=== PATIENT | male | born 1985 | race Caucasian/White ===

== ENCOUNTER 2017-05-31 23:36 | Emergency (ER) | payer BC ==
[~2017-05-31] VITALS: Ht 167.6 cm; Wt 77.1 kg
[2017-05-31] MEDS ORDERED: FAMCYCLOVIR 50500 M1 PO (23:54)
[2017-05-31 23:58] LABS: ABSOLUTE BASOPHILS 0.1 thou/uL (0.0-0.2); ABSOLUTE EOSINOPHILS 0.1 thou/uL (0.0-0.7); ABSOLUTE LYMPHOCYTES 2.7 thou/uL (0.8-5.3); ABSOLUTE MONOCYTES 0.5 thou/uL (0.0-1.2); ABSOLUTE NEUTROPHILS 3.4 thou/uL (1.6-8.1); HEMATOCRIT 46.7 % (42.0-52.0); HEMOGLOBIN 15.9 gm/dL (14.0-18.0); LYMPHOCYTES 39.6 %; MCH 30.6 pg (26.0-34.0); MONOCYTES 7.7 %; MPV 7.5 fl. (7.2-11.1); NUCLEATED RBCS 0 /100WBC; PLATELET COUNT* 346 thou/uL (150-400); POLYS 49.7 %; RBC 5.19 mil/uL (4.50-6.00); RDW-CV 12.9 % (10.5-14.5); WBC 6.9 thou/uL (4.0-11.0)
[2017-06-01 00:05] LABS: ANION GAP 10 mmol/L (7-16); BUN 8 mg/dL (7-18); CALCIUM 9.3 mg/dL (8.5-10.1); CHLORIDE 104 mmol/L (98-107); CO2 28 mmol/L (21-32); GLUCOSE 157 mg/dL (70-99); POTASSIUM 3.6 mmol/L (3.5-5.1); SODIUM 142 mmol/L (136-145)
[2017-06-01 00:14] LABS: APTT 25.2 Seconds (25.0-31.3); INR 1.1; PROTIME 10.4 Seconds (9.20-11.50)
[2017-06-01 00:28] LABS: ALBUMIN 4.3 g/dL (3.4-5.0); ALKALINE PHOSPHATASE 51 U/L (46-116); CK-MB MASS 1.1 ng/mL (<0.5-3.6); LIPASE 93 U/L (73-393); MAGNESIUM 1.9 mg/dL (1.8-2.4); NT-PRO BRAIN NAT PEPTIDE 28 pg/mL (<300); SGOT 17 U/L (15-37); SGPT 31 U/L (30-65); TOTAL BILIRUBIN 0.3 mg/dL (<0.1-1.0); TOTAL PROTEIN 8.1 g/dL (6.4-8.2); TROPONIN-I LEVEL <0.06 ng/mL (<0.06)
[2017-06-01 00:39] VITALS: BP 132/92
--- NOTE | 2017-06-01 16:17 | EKG ---
[place] [address] ELECTROCARDIOGRAM REPORT Name: SADIQ OLMEDO Room: [facility]#: [id number] Admission: 05/31/17 Attend Phys: Discharge: 06/01/17 Date of : 81 Report #: [id number] THIS REPORT FOR: //name// [facility] ED Test Date: 2017-05-31 Test Time: 23:42:06 Pat Name: SADIQ OLMEDO Department: Room: Gender: M [employer]: : 1985 Requested By: Werner Mendez Order Number: [id number] MD: Sadiq Bailey Measurements Intervals [place] Rate: 137 P: 89 AR: 131 QRS: 67 QRSD: 96 T: -34 QT: 296 QTc: 447 Interpretive Statements Sinus tachycardia Borderline repolarization abnormality No previous ECG available for comparison Electronically Signed On 06-01-2017 16:16:56 CDT by Sadiq Bailey [email or web address] <ELECTRONICALLY SIGNED> By: Sadiq Bailey MD, [facility] 06/01/17 1616 [id number] Sadiq Bailey MD, FACC /EPI
== END 2017-06-01 00:41 | disposition home or self-care (01) ==
LOC: M.ERS 23:36
PROVIDERS: Family Medicine
DX: F41.0 Panic disorder [episodic paroxysmal anxiety] (principal); Z91.041 Radiographic dye allergy status

== ENCOUNTER 2017-12-16 15:43 | Emergency (ER) | payer BC ==
[~2017-12-16] VITALS: Ht 167.6 cm; Wt 82.6 kg
[~2017-12-16 15:43] MED LIST: FAMCYCLOVIR 50500 M1 PO
[2017-12-16] MEDS ORDERED: LEXAPRO 10 MG T10 M1 PO (15:54)
[2017-12-16] MEDS ORDERED: TRAZODONE HCL50 MG PO (15:55)
[2017-12-16] MEDS ORDERED: FAMCYCLOVIR 50500 M1 PO (15:55)
[2017-12-16 16:21] LABS: ABSOLUTE BASOPHILS 0.1 thou/uL (0.0-0.2); ABSOLUTE EOSINOPHILS 0.1 thou/uL (0.0-0.7); ABSOLUTE LYMPHOCYTES 1.9 thou/uL (0.8-5.3); ABSOLUTE MONOCYTES 0.5 thou/uL (0.0-1.2); ABSOLUTE NEUTROPHILS 3.7 thou/uL (1.6-8.1); BASOPHILS 1.3 %; EOSINOPHILS 1.5 %; HEMATOCRIT 47.5 % (42.0-52.0); HEMOGLOBIN 16.1 gm/dL (14.0-18.0); LYMPHOCYTES 30.2 %; MCH 30.3 pg (26.0-34.0); MCV 89.1 fL (80.0-100.0); NUCLEATED RBCS 0 /100WBC; PLATELET COUNT* 359 thou/uL (150-400); RBC 5.33 mil/uL (4.50-6.00); RDW-CV 12.8 % (10.5-14.5); WBC 6.2 thou/uL (4.0-11.0)
[2017-12-16 16:30] LABS: ANION GAP 6 mmol/L (7-16); BUN 11 mg/dL (7-18); CHLORIDE 103 mmol/L (98-107); CO2 31 mmol/L (21-32); CREATININE 1.2 mg/dL (0.6-1.3); GLUCOSE 110 mg/dL (70-99); POTASSIUM 4.3 mmol/L (3.5-5.1); SODIUM 140 mmol/L (136-145)
[2017-12-16 16:40] LABS: ALBUMIN 4.2 g/dL (3.4-5.0); ALKALINE PHOSPHATASE 47 U/L (46-116); LIPASE 121 U/L (73-393); NT-PRO BRAIN NAT PEPTIDE 12 pg/mL (<300); SGOT 16 U/L (15-37); SGPT 30 U/L (30-65); TOTAL BILIRUBIN 0.4 mg/dL (<0.1-1.0); TOTAL PROTEIN 7.6 g/dL (6.4-8.2); TROPONIN-I LEVEL <0.06 ng/mL (<0.06)
[2017-12-16] MEDS ORDERED: AMBIEN 10 MG TA10 MG PO (17:14)
--- NOTE | 2017-12-16 17:19 | EKG ---
[place] [address] ELECTROCARDIOGRAM REPORT Name: DAMIANSADIQ SOLIS Room: 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1985 Requested By: Iftikhar Horner Order Number: [id number] MD: Marco Rivas Measurements Intervals [place] Rate: 80 P: 47 OK: 116 QRS: 64 QRSD: 98 T: 3 QT: 368 QTc: 425 Interpretive Statements Sinus rhythm Borderline short OK interval Baseline wander in lead(s) V2 Compared to ECG 05/31/2017 23:42:06 Sinus tachycardia no longer present Electronically Signed On 12-16-2017 17:19:12 CDT by Marco Rivas [email or web address] <ELECTRONICALLY SIGNED> By: Marco Rivas MD, [facility] 12/16/17 1719 1548 1548 Marco Rivas MD, FACC /EPI
[2017-12-16 17:22] VITALS: BP 126/79
== END 2017-12-16 17:23 | disposition home or self-care (01) ==
LOC: M.ERS 15:43
PROVIDERS: Emergency Medicine
DX: R00.2 Palpitations (principal); Z91.041 Radiographic dye allergy status